=== PATIENT | female | born 1990 | race Caucasian/White ===

== ENCOUNTER 2018-12-11 01:20 | Emergency (ER) | payer MEDICAID ==
[~2018-12-11] VITALS: Ht 170.2 cm; Wt 56.0 kg
[2018-12-11] MEDS ORDERED: BUPR1FIL3 SL (01:47)
[2018-12-11] MEDS ORDERED: PNV1TABL75 PO (01:47)
--- NOTE | 2018-12-11 02:24 | NUR ---
[facility] Shannon at bedside
--- NOTE | 2018-12-11 02:24 | NUR ---
Patient states that she "feels better" and requesting to see doctor, NAKIA informed
[2018-12-11 02:25] VITALS: BP 98/43
== END 2018-12-11 02:34 | disposition left against medical advice (07) ==
LOC: ER 01:21
DX: O26.892 Other specified pregnancy related conditions, second trimester (principal); R10.9 Unspecified abdominal pain; G89.29 Other chronic pain; O99.332 Smoking (tobacco) complicating pregnancy, second trimester; F17.200 Nicotine dependence, unspecified, uncomplicated; Z3A.23 23 weeks gestation of pregnancy; Z88.0 Allergy status to penicillin; Z79.899 Other long term (current) drug therapy
CPT/HCPCS: 99281